=== PATIENT | female | born 1960 ===

== ENCOUNTER 2017-06-22 09:30 | Emergency (ER) | payer MEDICAID, OTHER ==
[2017-06-22 09:37] VITALS: TEMP 98.5
[2017-06-22] MEDS ORDERED: Oxycodone/Acetaminophen 5/325 mg Tab PO STA (09:55)
--- NOTE | 2017-06-22 09:58 | ED PDOC ---
HPI: General Adult Time Seen by Provider: 06/22/17 09:53 Chief Complaint (Nursing): Back Pain History Per: Patient, Family (daughter at bedside, translating) Onset/Duration Of Symptoms: Days Have you had recent travel within the past 21 days to any of the following countries: [place], [place], [place] or [place]?: No Current Symptoms Are (Timing): Still Present Severity: Severe Pain Scale Rating Of: 10 Location: lower back Similar Symptoms Previously: yes Recent Trauma: yes Additional History Per: Family Additional Complaint(s): Pt p/w + lower back pain, radiating at times down her left leg; pt was playing with her grandchildren 1-2 days ago and had a fall; pt was able to stand and walk post fall, but states overnight that night, pain worsened; pt has a hx of lower back pain, usually tolerable at ~ 5/10; pt states pain gradually is persistent and now severe at 10/10; pt states movement/walking, changing position causes severe pain; pt states no fever/chill/sweats, no cp/sob/ palpitations, no abd pain, no n/v, no numbness/tingling, no urinary/bowel changes, no vaginal/rectal numbness/tingling, no incontinence, no new fall/ trauma/travel, no sick contact; pt is here for further eval; pt's without other complaints pt remains able to walk, but very slowly pt lives with family Past Medical History Reviewed: Historical Data, Nursing Documentation, Vital Signs Vital Signs: Last Vital Signs Temp 98.5 F 06/22/17 09:36 Pulse 90 06/22/17 13:39 Resp 16 06/22/17 13:39 BP 128/78 06/22/17 13:39 Pulse Ox 96 06/22/17 13:39 - Medical History PMH: Chronic Pain (low back pain) - Surgical History Surgical History: No Surg Hx - Family History Family History: States: No Known Family Hx - Living Arrangements Living Arrangements: With Family - Social History Current smoker - smoking cessation education provided: No Ex-Smoker (has not smoked in the last 12 months): No Alcohol: None Drugs: Denies - Home Medications Home Medications: Ambulatory Orders Medication Instructions Recorded Ibuprofen [Motrin] 400 mg PO QID #30 tab 06/22/17 diaZEpam [Valium] 5 mg PO TID PRN #12 tab 06/22/17 oxyCODONE/Acetaminophen [Percocet 1 tab PO TID PRN #12 tab 06/22/17 5/325 mg Tab] - Allergies Allergies/Adverse Reactions: Allergies Allergy/AdvReac Type Severity Reaction Status Date / Time No Known Allergies Allergy Verified 06/22/17 09:40 Review of Systems ROS Statement: Except As Marked, All Systems Reviewed And Found Negative Constitutional: Negative for: Fever, Weakness, Weight loss Eyes: Negative for: Pain ENT: Negative for: Ear Pain Cardiovascular: Negative for: Chest Pain Respiratory: Negative for: Cough, SOB with Exertion Gastrointestinal: Negative for: Nausea, Vomiting, Abdominal Pain Genitourinary Female: Negative for: Dysuria, Hematuria Musculoskeletal: Positive for: Back Pain Skin: Negative for: Rash Neurological: Negative for: Weakness, Numbness, Incoordination, Altered Mental Status, Headache Physical Exam - Reviewed Nursing Documentation Reviewed: Yes Vital Signs Reviewed: Yes (WNL) - Physical Exam Appears: Positive for: Well, Non-toxic, Uncomfortable (resting in bed, laying on her right side for comfort; pt is in mild-moderate distress, Uncomfortable, alert/awake, coopertaive, GCS = 15, oriented x 3) Head Exam: Positive for: ATRAUMATIC, NORMAL INSPECTION, NORMOCEPHALIC Skin: Positive for: Normal Color (cap refill < 1sec, no ulcerations, no petechiae), Warm, Dry Eye Exam: Positive for: Normal appearance, EOMI, PERRL ENT: Positive for: Normal ENT Inspection, Other (uvula/tongue are midline, no exudate/lesions) Neck: Positive for: Normal (no midline tenderness, no step off, intact ROM, no gross deformities), Painless ROM, Supple, Trachea Midline Cardiovascular/Chest: Positive for: Regular Rate, Rhythm, Chest Non Tender, Other (+S1, +S2). Negative for: Murmur Respiratory: Positive for: Normal Breath Sounds, Other (CTA b/l, no w/r/r, no accessory muscle use noted, no tachypenia) Gastrointestinal/Abdominal: Positive for: Normal Exam, Bowel Sounds, Soft Back: Positive for: Normal Inspection, Other (+ lower lumbar/paralumbar tenderness, no crepitus, no gross deformities, no midline tenderness, no step off). Negative for: L CVA Tenderness, R CVA Tenderness Extremity: Positive for: Normal ROM, Other (+ ambulatory, neurovasc intact b/l) Neurologic/Psych: Positive for: Alert, shuttler car II-XII, Oriented - ECG O2 Sat by Pulse Oximetry: 98 Pulse Ox Interpretation: Normal - Radiology X-Ray: Read By Radiologist X-Ray Interpretation: Other - Progress ED Course And Treament: L/S - PROCEDURE: Radiographs of the Lumbar Spine. HISTORY: Status post fall last night with history up back pain; now w/severe pain. COMPARISON: No prior. FINDINGS: BONES: No acute compression fractures no retropulsed fragments. Vertebral bodies exhibit normal stature. Vertebral bodies facets normally aligned DISC SPACES: Mild multilevel degenerative spondylosis. . At the L5-S1 level, there is disc space narrowing with endplate eburnation and small anterolateral osteophyte formation. Facets hypertrophic. Mild disc space narrowing L4-L5 level with small marginal anterolateral osteophyte formation. Facets also mildly hypertrophic. Remaining disc space heights are relatively maintained. Small marginal anterolateral osteophytes are present. . No evidence of spondylolisthesis or spondylolysis OTHER FINDINGS: Multiple metallic clips are seen in the upper quadrants of the abdomen bilaterally, right-sided which most consistent with prior cholecystectomy. Clinic correlation with surgical history for additional details regarding left upper quadrant surgery. . IMPRESSION: No acute fractures. . If symptoms persist or worsened or occult fracture suspected clinically consider followup CT scan or MRI. Mild multilevel degenerative spondylosis as described. Left chest/ribs: no acute fx; no PTX noted 11:30am - pt felt improved, pt states her back pain is now 5-6/10 12:30pm - pt is made aware of her medical results pt is encouraged no heavy lifting/weight bearing, no prolonged standing pt is encouraged outpt f/u pt will be discharged home Re-evaluation Time: 13:00 Condition: Improved Medical Decision Making Medical Decision Making: Impression: lower back pain i have consider all the differential diagnosis regarding pt's chief medical complaints/clinical findings, including but are not limited to: lower back pain , s/p fall; r/o fx A/P: fall, lower back pain - xray - observe - supportive care Disposition - Clinical Impression Clinical Impression: Lower back pain, Acute back pain, Contusion, Fall, Contusion of rib on left side - Patient ED Disposition Is Patient to be Admitted: No - Disposition Referrals: PCP,NO [Non-Staff] - Genesis Palencia MD [Medical Doctor] - Dong Chu III, MD [Staff Provider] - Disposition: Routine/Home Disposition Time: 13:02 Condition: STABLE Additional Instructions: Make sure to see your doctor in 1-2 days DRINK PLENTY OF FLUIDS AVOID heavy weight bearing AVOID prolonged standing take your medications as prescribed RETURN TO ED IF worse pain, cant breath, persistent vomiting, high fever >101- 102 for hours, altered behavior, slurr speech, facial changes, focal weakness ( arm/leg or both), unable to urinate, heavy/persistent bleeding, incontience, cant walk, passing out, chest pain, or other medical emergencies Prescriptions: diaZEpam [Valium] 5 mg PO TID PRN #12 tab PRN Reason: Muscle Spasm Ibuprofen [Motrin] 400 mg PO QID #30 tab oxyCODONE/Acetaminophen [Percocet 5/325 mg Tab] 1 tab PO TID PRN #12 tab PRN Reason: Pain, Moderate (4-7) Instructions: Low Back Pain in Adults, Preventing Falls in the Older Adult, Bruised Rib (DC) Forms: WOWash (Citizen Of [place]), WOW[employer] (Kisw[place]ili) Print Language: MONTSERRATIAN
[2017-06-22] MEDS ORDERED: Oxycodone/Acetaminophen 5/325 mg Tab ONE (10:27)
--- NOTE | 2017-06-22 12:31 | RAD ---
PROCEDURE: Radiographs of the Lumbar Spine. HISTORY: Status post fall last night with history up back pain; now w/severe pain. COMPARISON: No prior. FINDINGS: BONES: No acute compression fractures no retropulsed fragments. Vertebral bodies exhibit normal stature. Vertebral bodies facets normally aligned DISC SPACES: Mild multilevel degenerative spondylosis. . At the L5-S1 level, there is disc space narrowing with endplate eburnation and small anterolateral osteophyte formation. Facets hypertrophic. Mild disc space narrowing L4-L5 level with small marginal anterolateral osteophyte formation. Facets also mildly hypertrophic. Remaining disc space heights are relatively maintained. Small marginal anterolateral osteophytes are present. . No evidence of spondylolisthesis or spondylolysis OTHER FINDINGS: Multiple metallic clips are seen in the upper quadrants of the abdomen bilaterally, right-sided which most consistent with prior cholecystectomy. Clinic correlation with surgical history for additional details regarding left upper quadrant surgery. . IMPRESSION: No acute fractures. . If symptoms persist or worsened or occult fracture suspected clinically consider followup CT scan or MRI. Mild multilevel degenerative spondylosis as described.
[2017-06-22 13:40] VITALS: BP 128/78; PULSE 90; RESP 16
--- NOTE | 2017-06-22 14:47 | RAD ---
PROCEDURE: Left rib series dated 06/22/2017. HISTORY: Status post fall with left chest wall pain. COMPARISON: Comparison made with prior chest radiograph dated 12/24/2008.. TECHNIQUE: Frontal radiograph of the chest and multiple oblique radiographs of the left ribs were obtained. FINDINGS: LEFT RIBS: Current study reveals no definitive radiographic evidence of acute displaced left-sided rib fracture. . The the visualized ribs appear intact with no focal lesions. Fracture LUNGS: Lung prasad clear without focal consolidation or effusion. . PLEURA: No effusion or apparent pneumothorax. CARDIOVASCULAR: Range of normal. . OTHER FINDINGS: Multilevel degenerative spondylosis of the thoracic spine. Multiple metallic clips seen in the right upper and left parasagittal upper abdomen as well as left mid abdomen. . Heart size within IMPRESSION: No definitive evidence of acute displaced left-sided rib fracture. If symptoms persist or occult fracture suspected clinically recommend followup CT scan of the chest further evaluation.
[2017-06-24 09:26] VITALS: O2SAT 98
== END 2017-06-22 13:40 | disposition home or self-care (01) ==
LOC: H.ER 09:30
DX: S20.212A Contusion of left front wall of thorax, initial encounter (principal); W19.XXXA Unspecified fall, initial encounter
CPT/HCPCS: 71101; 72114; 96372; 99283; J1885